=== PATIENT | female | born 1940 | race Caucasian/White ===

== ENCOUNTER → 2018-01-04 | Outpatient (CLI) | payer MEDICARE, OTHER | END | disposition home or self-care (01) | LOC: CFH 08:31 | PROVIDERS: ATTEND Internal Medicine | DX: J47.9 Bronchiectasis, uncomplicated (principal); J98.11 Atelectasis; R91.8 Other nonspecific abnormal finding of lung field | CPT/HCPCS: 71250 ==

== ENCOUNTER 2018-07-17 05:36 | Emergency (ER) | payer MEDICARE, OTHER ==
[~2018-07-17] VITALS: Ht 165.1 cm; Wt 62.2 kg
[2018-07-17] MEDS ORDERED: SODIUM CHLORIDE FLUSH 10ML SYR IVF ONE (06:00)
--- NOTE | 2018-07-17 06:01 | NUR ---
FIRST CONTACT WITH PT. PT REPORTS A COUGH SINCE THE BEGINNING OF JUNE. SHE HAS TAKEN ABX WITHOUT RELIEF. TONIGHT WHILE TRYING TO SIT UP IN BED, SHE EXPEREINCED A BRIEF EPISODE OF SHARP, LEFT SIDED CHEST PAIN. +SOB, DENIES ANY N/V. REPORTS CHILLS. PT'S AOX4. RESPS EVEN AND UNLABORED. ALL MONITORS IN PLACE. CALL LIGHT WITHIN REACH. EDMD AT BEDSIDE TO ASSESS AT THIS TIME.
[2018-07-17 06:44] LABS: BASOPHILS # (AUTO) 0.03 x10^3/uL (0-0.1); BASOPHILS % (AUTO) 0 % (0-1); EOSINOPHILS % (AUTO) 5 % (1-7); LYMPHOCYTES # (AUTO) 1.69 x10^3/uL (1-3.4); LYMPHOCYTES % (AUTO) 25 % (22-44); MD NO; MEAN CORPUSCULAR HEMOGLOBIN 31.3 pg (27.0-34.8); MEAN CORPUSCULAR HGB CONC 33.9 g/dL (32.4-35.8); MEAN CORPUSCULAR VOLUME 92.4 fL (80-100); MONOCYTES # (AUTO) 0.58 x10^3/uL (0.2-0.8); MONOCYTES % (AUTO) 9 % (2-9); NEUTROPHILS # (AUTO) 4.07 x10^3/uL (1.8-6.8); NEUTROPHILS % (AUTO) 61 % (42-75); PLATELET COUNT 362 x10^3/uL (130-400); RED BLOOD COUNT 4.46 x10^6/uL (3.82-5.3); RED CELL DISTRIBUTION WIDTH 13.5 % (9.6-15.2)
--- NOTE | 2018-07-17 06:47 | NUR ---
REPORT GIVEN TO VINCE VERONICA.
--- NOTE | 2018-07-17 06:50 | NUR ---
ASSUMED CARE. PT UPRIGHT IN [facility]. NOTED TO HAVE OCCASIONAL COUGH. AT BEDSIDE. AWAITING RE-EVAL
[2018-07-17 06:52] LABS: ALANINE AMINOTRANSFERASE 20 U/L (12-78); ALBUMIN 3.6 g/dL (3.4-5.0); ANION GAP 3 mmol/L (5-15); CALCIUM 8.8 mg/dL (8.5-10.1); CHLORIDE 110 mmol/L (98-107); CREATININE 0.63 mg/dL (0.55-1.02)
[2018-07-17 06:56] LABS: ALKALINE PHOSPHATASE 79 U/L (45-117); BILIRUBIN,TOTAL 0.3 mg/dL (0.2-1.0); TOTAL PROTEIN 7.5 g/dL (6.4-8.2); TROPONIN I < 0.015 ng/mL (0.000-0.045)
[2018-07-17 07:47] VITALS: BP 143/78
--- NOTE | 2018-07-17 08:05 | NUR ---
AT BEDSIDE RE-EVALUATING PT
== END 2018-07-17 08:50 | disposition home or self-care (01) ==
LOC: ED 06:25
DX: R05 Cough (principal); R07.89 Other chest pain
CPT/HCPCS: 36415; 71045; 80053; 83880; 84484; 85025; 93005; 99284